=== PATIENT | male | born 1935 | race Caucasian/White ===

== ENCOUNTER 2018-08-31 09:18 | Inpatient (IN) ==
--- NOTE | 2018-08-31 09:47 | Emergency Department Note ---
Disposition Clinical Impression: Acute kidney injury superimposed on CKD, Hyperkalemia, Aspiration pneumonitis COPD (chronic obstructive pulmonary disease) Qualifiers: COPD type: chronic bronchitis Chronic bronchitis type: unspecified Qualified Code(s): J42 - Unspecified chronic bronchitis Dysphagia Qualifiers: Dysphagia type: unspecified Qualified Code(s): R13.10 - Dysphagia, unspecified UTI (urinary tract infection) Qualifiers: Urinary tract infection type: acute cystitis Hematuria presence: with hematuria Qualified Code(s): N30.01 - Acute cystitis with hematuria Disposition: Admitted As Inpatient Condition: Undetermined Referrals: NONE,PCP [Primary Care Provider] - Forms: ED Satisfaction Letter, Work/School Release Time of Disposition: 11:34 General Adult HPI - General Chief complaint: ED General Medical Stated complaint: aspiration/trouble swallowing Time Seen by Provider: 08/31/18 09:20 Source: patient, family Mode of arrival: wheelchair Limitations: altered mental status, physical limitation Nursing Notes Reviewed: Yes Vital Signs Reviewed: Yes - History of Present Illness HPI Narrative: 83-year-old male with history of hypertension, COPD, arrives to the emergency department concerned for increased weakness, difficulty swallowing to the point where he has not eaten in 3 days, concern for aspiration per family member. The patient was drinking some fluids Friday night/Friday morning and began coughing. She states that since then he has had a gurgling in his throat and his lungs. Patient is had numerous falls over the course of the past week as well. Daughter brought inpatient because he is so weak he cannot be taking care of at home. Patient is at his baseline mental status per the daughter and which she states that he has conversation with people but on evaluation in the room he is minimally conversive but he does understand the current situation based on his mental status evaluation. He is not in any respiratory distress but does have a large amount of coarse breath sounds on auscultation. She is covered in skin tears and abrasions on bilateral upper extremities from a recent fall. Is a large amount of ecchymosis on bilateral upper extremities. In addition his daughter notes the patient has a rash on bilateral lower extremities that she states was "an allergic reaction to something". Patient denies any complaints at this time but is a poor historian. The daughter thinks that he has a history of dementia but is unsure as he has never been "diagnosed". Pain Scale: 0 - Related Data Home Medications Medication Instructions Recorded Confirmed Budesonide/Formoterol 160/4.5 2 puff IH BIDR 08/17/17 08/05/18 [Symbicort 160/4.5] Ipratropium [ATROVENT Inhaler] 2 puff IH QID 08/17/17 08/05/18 Omeprazole [PriLOSEC] 20 mg PO BID 08/17/17 08/05/18 Simvastatin [Zocor] 40 mg PO QPM 08/17/17 08/05/18 Tamsulosin [Flomax] 0.4 mg PO DAILY 08/17/17 08/05/18 Acetylcysteine 600 mg PO BID 06/29/18 08/05/18 [L-Trylyf-c-Cysteine] Docusate Sodium [Dok] 100 mg PO BID PRN 06/29/18 08/05/18 Levothyroxine [Synthroid] 25 mcg PO DAILY 06/29/18 08/05/18 Metoprolol [Lopressor] 12.5 mg PO BID 06/29/18 08/05/18 Nitroglycerin [Nitrostat] 0.4 mg SL Q5M PRN 06/29/18 08/05/18 Theophylline Anhydrous [Jayjay-24] 100 mg PO DAILY 06/29/18 08/05/18 Previous Rx's Medication Instructions Recorded Ipratropium/Albuterol Neb [Duoneb] 3 ml IH Q6HR PRN #30 vial.neb 09/26/15 Ferrous Sulfate 325 mg PO DAILY 30 Days #30 tablet 08/08/18 Sodium Bicarbonate 325 mg PO TID 30 Days #90 tablet 08/08/18 Allergies Allergy/AdvReac Type Severity Reaction Status Date / Time latex Allergy Hives Verified 08/17/17 17:28 vancomycin Allergy See Verified 08/17/17 17:28 Comments lansoprazole AdvReac See Verified 08/17/17 17:28 Comments linezolid AdvReac See Verified 08/17/17 17:28 Comments All systems ED: reviewed and negative except as stated. Constitutional: Reports: chills, weakness. Denies: fever ENT ED: Reports: congestion, dysphagia Cardiovascular: Reports: dyspnea on exertion, edema. Denies: chest pain, orthopnea, syncope Respiratory: Reports: cough, dyspnea, sputum production. Denies: wheezes, hemoptysis, stridor Gastrointestinal: Denies: abdominal pain, nausea, vomiting, diarrhea, constipation, melena Genitourinary: Denies: urgency, dysuria Musculoskeletal: Reports: arthralgia, myalgia. Denies: back pain, neck pain Integumentary: Reports: rash, abrasion, lesions Neurological: Reports: weakness, confusion, abnormal gait. Denies: headache, numbness, paresthesias Past Medical History - Past Medical History Source: old records reviewed, obtained from family, nursing notes reviewed Medical history: Reports: COPD, coronary artery disease, hyperlipidemia, hypertension, myocardial infarction, peripheral artery disease, renal disease, thyroid disease, other Surgical history: Reports: non-contributory Psychiatric history: Reports: no psych history - Social History Smoking Status: Former smoker Smokeless Tobacco Status: No Alcohol use: Reports: none Drug use: Reports: none Physical Exam - General Limitations: altered mental status General appearance: alert, in no apparent distress - Head Head exam: other (Ecchymosis to for head as well as anterior scalp.) - Eye Eye exam: Present: normal appearance, PERRL, EOMI - ENT ENT exam: normal oropharynx, mucous membranes moist - Neck Neck exam: Present: normal inspection, full ROM, trachea midline - Chest Chest inspection: Present: normal inspection, symmetric chest wall rise. Abs ent: tenderness - Respiratory Respiratory exam: Present: other (Course breath sounds bilaterally). Absent: respiratory distress - Cardiovascular Cardiovascular exam: Present: regular rate, normal rhythm, normal heart sounds - Abdominal Exam Abdominal exam: Present: soft, Non-Tender, hernia (Midline), scar (Midline.). Absent: tenderness, distention, guarding, rebound, rigidity - Extremities Exam Extremities exam: Present: full ROM, tenderness (Bilateral upper extremities. Large amount of ecchymosis and bilateral abrasions and skin tears to bilateral upper extremities. Patient's left shoulder is a large amount of ecchymosis in the anterior aspect. The patient's bilateral lower extremities has a diffuse rash consistent with healing macular type rash with numerous excoriations. Right lower extremity has baseline edema compared to the left. Both feet have 1+ pitting edema. DP pulses and PT pulses 2+ bilaterally, radial pulses 2+ bilaterally. Full range of motion noted.) - Neurological Exam Neurological exam: Present: alert - Expanded Neurological Exam Patient oriented to: Present: person, place Cranial nerves: EOM function (II, III, IV, ): Normal Cerebellar function: wide-based gait Motor strength - LUE: 4/5 Motor strength - RUE: 4/5 Motor strength - LLE: 4/5 Motor strength - RLE: 4/5 Sensory exam upper extremity: light touch: Normal Sensory exam lower extremity: light touch: Normal Coma Scale Eye Opening: Spontaneous Coma Scale Motor Response: Obeys Commands Coma Scale Verbal Response: Confused Coma Scale Total: 14 - Skin Skin exam: Present: warm, dry, rash Course Vital Signs Temperature 97.5 F L 08/31/18 09:28 Pulse Rate 82 08/31/18 09:28 Respiratory Rate 22 08/31/18 09:28 Blood Pressure 130/68 08/31/18 09:28 O2 Sat by Pulse Oximetry 93 08/31/18 09:28 Temperature 97.5 F L 08/31/18 09:28 Pulse Rate 82 08/31/18 09:28 Respiratory Rate 22 08/31/18 09:28 Blood Pressure 130/68 08/31/18 09:28 O2 Sat by Pulse Oximetry 93 08/31/18 09:28 Oxygen Delivery Oxygen Delivery Room Air Medical Decision Making - MDM Narrative Medical decision making narrative: Patient's evaluation in the emergency department demonstrates findings con sistent with a aspiration pneumonitis given the patient's mild hypoxia and history of aspiration episode. In addition the patient was noted to have a urinary tract infection. We will go ahead and treat the patient's urinary tract infection with Rocephin. The patient will be admitted to the hospital for further workup and care. The patient does have an acute kidney injury on superimposed chronic kidney disease. His potassium is elevated at 5.3. Patient's no EKG changes. We will hold off treating his hyperkalemia given the patient's acute kidney injury. The patient will be admitted to the hospital at this time for further workup and care. animal care service worker was consulted. No further questions or concerns noted. Dr. Casas accepted to the hospitalist. - Lab Data Result diagrams: 08/31/18 09:49 08/31/18 09:49 Lab Results 08/31/18 08/31/18 08/31/18 Range/Units 09:49 09:49 09:49 WBC 8.6 (4.3-11.1) K/mcL RBC 3.26 L (4.19-5.50) M/mcL Hgb 9.5 L (12.9-16.9) g/dL Hct 30.3 L (37.5-50.1) % MCV 92.9 (83.0-100.0) fL MCH 29.1 (28.0-33.3) pg MCHC 31.4 L (31.6-35.5) g/dL RDW 15.1 H (11.5-14.5) % Plt Count 254 (140-400) K/mcL MPV 9.4 (9.4-12.4) fL Immature Gran % 0.3 (0-4) % Seg Neutrophils % 87.1 % Lymphocytes % 7.0 % Monocytes % 4.4 % Eosinophils % 0.9 % Basophils % 0.3 % Neutrophils # 7.5 (1.6-8.9) K/mcL Lymphocytes # 0.6 (0.6-4.6) K/mcL Monocytes # 0.4 (0.0-1.3) K/mcL Eosinophils # 0.1 (0.0-0.6) K/mcL Basophils # 0.0 (0.0-0.2) K/mcL PT 12.0 (9.4-12.1) Seconds INR 1.1 Sodium 142 (136-145) mEq/L Potassium 5.3 H (3.5-5.1) mEq/L Chloride 112 H (98-107) mEq/L Carbon Dioxide 22 L (23-29) mEq/L BUN 41 H (8-23) mg/dL Creatinine 2.08 H (0.70-1.30) mg/dL Est GFR ( Amer) 37 L (> 60) Est GFR (Non-Af Amer) 31 L (> 60) BUN/Creatinine Ratio 20 (6-26) Glucose 82 (70-105) mg/dL Calculated Osmolality 303 H (280-300) Lactic Acid (0.5-2.2) mmol/L Calcium 8.7 (8.6-10.3) mg/dL Total Bilirubin 0.3 (0.3-1.0) mg/dL AST 14 (13-39) Units/L ALT 11 (7-52) Units/L Alkaline Phosphatase 188 H (34-104) Units/L Troponin I < 0.03 (< 0.04) ng/mL Serum Total Protein 6.2 L (6.4-8.9) g/dL Albumin 2.8 L (3.5-5.7) g/dL Globulin 3.4 (2.4-3.5) g/dL Albumin/Globulin Ratio 0.8 L (1.1-2.2) Urine Color (Yellow) Urine Clarity (Clear) Urine pH (5.0-8.0) pH Units Ur Specific [place] (1.010-1.025) Urine Protein (Neg-Trace) mg/dL Urine Glucose (UA) (Normal) mg/dL Urine Ketones (Negative) mg/dL Urine Blood (Negative) Urine Nitrite (Negative) Urine Bilirubin (Negative) Urine Urobilinogen (Normal) mg/dL Ur Leukocyte Esterase (Negative) Urine Microscopic RBC (0-3) per hpf Urine Microscopic WBC (0-3) per hpf Ur Squamous Epith Cells (None-Few) per lpf Urine Bacteria (None-Few) per hpf Hyaline Casts (None-Few) per lpf Ur Culture Indicated? (NO) 08/31/18 08/31/18 Range/Units 09:53 10:50 WBC (4.3-11.1) K/mcL RBC (4.19-5.50) M/mcL Hgb (12.9-16.9) g/dL Hct (37.5-50.1) % MCV (83.0-100.0) fL MCH (28.0-33.3) pg MCHC (31.6-35.5) g/dL RDW (11.5-14.5) % Plt Count (140-400) K/mcL MPV (9.4-12.4) fL Immature Gran % (0-4) % Seg Neutrophils % % Lymphocytes % % Monocytes % % Eosinophils % % Basophils % % Neutrophils # (1.6-8.9) K/mcL Lymphocytes # (0.6-4.6) K/mcL Monocytes # (0.0-1.3) K/mcL Eosinophils # (0.0-0.6) K/mcL Basophils # (0.0-0.2) K/mcL PT (9.4-12.1) Seconds INR Sodium (136-145) mEq/L Potassium (3.5-5.1) mEq/L Chloride (98-107) mEq/L Carbon Dioxide (23-29) mEq/L BUN (8-23) mg/dL Creatinine (0.70-1.30) mg/dL Est GFR ( Amer) (> 60) Est GFR (Non-Af Amer) (> 60) BUN/Creatinine Ratio (6-26) Glucose (70-105) mg/dL Calculated Osmolality (280-300) Lactic Acid 0.7 (0.5-2.2) mmol/L Calcium (8.6-10.3) mg/dL Total Bilirubin (0.3-1.0) mg/dL AST (13-39) Units/L ALT (7-52) Units/L Alkaline Phosphatase (34-104) Units/L Troponin I (< 0.04) ng/mL Serum Total Protein (6.4-8.9) g/dL Albumin (3.5-5.7) g/dL Globulin (2.4-3.5) g/dL Albumin/Globulin Ratio (1.1-2.2) Urine Color Yellow (Yellow) Urine Clarity Cloudy A (Clear) Urine pH 6.5 (5.0-8.0) pH Units Ur Specific [place] 1.014 (1.010-1.025) Urine Protein >=1000 H (Neg-Trace) mg/dL Urine Glucose (UA) 250 H (Normal) mg/dL Urine Ketones Negative (Negative) mg/dL Urine Blood Small H (Negative) Urine Nitrite Negative (Negative) Urine Bilirubin Negative (Negative) Urine Urobilinogen Normal (Normal) mg/dL Ur Leukocyte Esterase Trace H (Negative) Urine Microscopic RBC 3-5 H (0-3) per hpf Urine Microscopic WBC TNTC H (0-3) per hpf Ur Squamous Epith Cells Few (None-Few) per lpf Urine Bacteria None Seen (None-Few) per hpf Hyaline Casts None Seen (None-Few) per lpf Ur Culture Indicated? YES A (NO) - EKG Data EKG #1 EKG attestation: Yes I reviewed and interpreted this EKG. EKG results narrative: Heart rate 85 beats for minute. Normal sinus rhythm. No ST elevation or ST depression noted but difficult to completely assess secondary to large amount of baseline artifact. No acute changes noted. EKG similar in appearance to EKG from 08/05/2018. Attestation Statement - Attestation Attestation: I, Ronan Okeefe, examined this patient and my medical decision-making was reviewed with the [facility]/PA/Advanced Practice Nurse/Resident Physician. I agree with the documented findings, disposition and treatment plan as described except to the extent set forth below. 83-year-old male presents emergency Department with concerns of increasing weakness, fatigue, multiple falls over the past couple days. She lives with daughter who states that he has had increased confusion over the past week, he does have a history of conversations with people that are not there past 3 months. Has not been formally diagnosed with dementia. Patient does not ambulate well on his own at baseline.. Daughter reports patient had multiple falls over the past few days while in shower, in bathroom and out of bed. CT did not show evidence of acute fracture or intracranial hemorrhage. Patient had possible urinary tract infection on urinalysis. He will be started on antibiotics in the emergency department. Patient be admitted to the hospital for further care and evaluation. animal care service worker was contacted regarding the patient's case and presentation.
[2018-08-31 10:11] LABS: Basophils % 0.3 %; Eosinophils # 0.1 K/mcL (0.0-0.6); Eosinophils % 0.9 %; Hematocrit 30.3 % (37.5-50.1); Hemoglobin 9.5 g/dL (12.9-16.9); Immature Granulocytes % 0.3 % (0-4); Lymphocytes # 0.6 K/mcL (0.6-4.6); Mean Corpuscular HGB Conc 31.4 g/dL (31.6-35.5); Mean Corpuscular Hemoglobin 29.1 pg (28.0-33.3); Mean Corpuscular Volume 92.9 fL (83.0-100.0); Mean Platelet Volume 9.4 fL (9.4-12.4); Monocytes # 0.4 K/mcL (0.0-1.3); Monocytes % 4.4 %; Neutrophils # 7.5 K/mcL (1.6-8.9); Platelet Count 254 K/mcL (140-400); Red Blood Count 3.26 M/mcL (4.19-5.50); Red Cell Distribution Width 15.1 % (11.5-14.5); Segmented Neutrophils % 87.1 %
[2018-08-31 10:16] LABS: INR 1.1
[2018-08-31 10:27] LABS: Troponin I < 0.03 ng/mL (< 0.04)
[2018-08-31 10:28] LABS: Alanine Aminotransferase 11 Units/L (7-52); Albumin 2.8 g/dL (3.5-5.7); Albumin/Globulin Ratio 0.8 (1.1-2.2); Alkaline Phosphatase 188 Units/L (34-104); Aspartate Amino Transferase 14 Units/L (13-39); BUN/Creatinine Ratio 20 (6-26); Bilirubin,Total 0.3 mg/dL (0.3-1.0); Blood Urea Nitrogen 41 mg/dL (8-23); Calcium 8.7 mg/dL (8.6-10.3); Carbon Dioxide 22 mEq/L (23-29); Chloride 112 mEq/L (98-107); Globulin 3.4 g/dL (2.4-3.5); Glucose 82 mg/dL (70-105); Osmolality,Calculated 303 (280-300); Potassium 5.3 mEq/L (3.5-5.1); Sodium 142 mEq/L (136-145); Total Protein 6.2 g/dL (6.4-8.9); eGFR For Non-African Americans 31 (> 60)
[2018-08-31 11:04] LABS: Bilirubin,Urine Negative (Negative); Blood,Urine Small (Negative); Clarity,Urine Cloudy (Clear); Color,Urine Yellow (Yellow); Glucose,Urine (UA) 250 mg/dL (Normal); Ketones,Urine Negative (Negative); Leukocyte Esterase,Urine Trace (Negative); Nitrite,Urine Negative (Negative); PH,Urine 6.5 pH Units (5.0-8.0); Protein,Urine >=1000 mg/dL (Neg-Trace); Specific Gravity,Urine 1.014 (1.010-1.025); Urobilinogen,Urine Normal (Normal)
[2018-08-31 11:08] LABS: Bacteria,Urine None Seen per hpf (None-Few); Hyaline Casts,Urine None Seen per lpf (None-Few); Squamous Epithelial Cell,Urine Few per lpf (None-Few); WBC,Urine TNTC per hpf (0-3)
[2018-08-31] MEDS ORDERED: cefTRIAXone 1,000 MG in Water for inj. (sterile) 20 ML 10 ML IVP ONE (11:28)
--- NOTE | 2018-08-31 11:59 | Internal Med History&Physical ---
Date of Encounter: 08/31/18 Time of Encounter: 11:59 Internal Medicine - H&P: HPI Chief complaint: falls, Not eating Admitted From: Home Plans for Post Hospital Care: Transfer Senior Care Facility History of present illness: Mr. Guzmán is a 83 year old male Past medical history of COPD, hypertension, CAD, HLD, CK 80, hypothyroidism was recently discharged after a anterolateral respiratory infection. Patient's family at that time decided to take him home even as PT recommended SNF placement. Over the weeks after discharge patient followed up with the nephrology recommended iron infusion and likely Aranesp treatment. Patient has been getting more altered as per daughter who takes care of him most of the time. She mentions he is not conversive 75% of the time. He does follow command on and off. He is able to walk on and off sometimes with a walker however has been falling a lot leading to a lot of injuries and bruises. Patient also has been not eating for past 2 days. Patient not able to offer any significant complaints. As per daughter he has not had any fevers or diarrhea or complaints of difficulty breathing or chest pain. Patient seen and examined at bedside in ER. Patient had workup for falls with x-ray of spine and wrist and shoulder which did not show any acute fractures. CT had was unremarkable. Lab data significant for possible UTI, potassium of 5.3, creatinine of 2.08, hemoglobin of 9.5. Patient not able to offer any complaints. He does follow commands but when asked to speak he is not able to articulate properly to understand. He is drowsy and goes back to sleep soon. Is not complaining any pain. Past Med Surg Social Fam HX - Past Medical History Medical history: COPD, coronary artery disease, hyperlipidemia, hypertension, myocardial infarction, peripheral artery disease, renal disease, thyroid di sease, other Additional medical history: Heart murmur. Two cardiac stents Psychiatric history: no psych history - Past Surgical History Additional surgical history: hernia repair, 3 hip replacements, heavy equipment accident and had surgery to repair internal damage to abdomen and bladder. - Social History Smoking Status: Former smoker Smokeless Tobacco Status: No Alcohol use: none Drug use: none - Family History Mother Living Status: Internal Medicine - H&P: Meds Ipratropium/Albuterol Neb [Duoneb] 3 ml IH Q6HR PRN #30 vial.neb 09/26/15 [Rx] Budesonide/Formoterol 160/4.5 [Symbicort 160/4.5] 2 puff IH BIDR 08/17/17 [History] Ipratropium [ATROVENT Inhaler] 2 puff IH QID 08/17/17 [History] Omeprazole [PriLOSEC] 20 mg PO BID 08/17/17 [History] Simvastatin [Zocor] 40 mg PO QPM 08/17/17 [History] Tamsulosin [Flomax] 0.4 mg PO DAILY 08/17/17 [History] Acetylcysteine [J-Ozokbh-v-Cysteine] 600 mg PO BID 06/29/18 [History] Docusate Sodium [Dok] 100 mg PO BID PRN 06/29/18 [History] Levothyroxine [Synthroid] 25 mcg PO DAILY 06/29/18 [History] Metoprolol [Lopressor] 12.5 mg PO BID 06/29/18 [History] Nitroglycerin [Nitrostat] 0.4 mg SL Q5M PRN 06/29/18 [History] Theophylline Anhydrous [Jayjay-24] 100 mg PO DAILY 06/29/18 [History] Ferrous Sulfate 325 mg PO DAILY 30 Days #30 tablet 08/08/18 [Rx] Sodium Bicarbonate 325 mg PO TID 30 Days #90 tablet 08/08/18 [Rx] Allergy/AdvReac Type Severity Reaction Status Date / Time latex Allergy Hives Verified 08/17/17 17:28 vancomycin Allergy See Verified 08/17/17 17:28 Comments lansoprazole AdvReac See Verified 08/17/17 17:28 Comments linezolid AdvReac See Verified 08/17/17 17:28 Comments All Systems PM: A 10-system review of systems was performed and is negative for pertinent findings except as documented above in the HPI. - Constitutional Vitals: Temp Pulse Resp BP Pulse Ox 97.5 F L 82 22 130/68 93 08/31/18 09:28 08/31/18 09:28 08/31/18 09:28 08/31/18 09:28 08/31/18 09:28 Exam: Constitutional: Vitals as noted. Conversant. No Apparent Distress. Eyes : Sclera white, conjunctiva clear, no lid lag, PEARLA. ENT : Grossly normal hearing. Tongue protruding. No JVD, no cervical lymphadenopathy. no thyromegaly or mass. Respiratory : Coarse transmitted upper respiratory secretory sounds diffusely. No accessory muscle use, rales, rhonchi or wheezes Cardiovascular : RRR, +S1, +S2. ejection murmur, gallop, rubs. No chest wall tenderness GI/Abdominal : Soft, Non-tender, Non-distended, normal bowel sounds, soft, no peritoneal signs. no orgenomegaly or mass appreciated. no hernia. Musculoskeletal: 2+ pedal edema Neurological: Alert, not able to converse. following command. Moving all extremities on command Skin: multiple skin tears on both arms Pych: apathic, not talking Internal Med - H&P Results - Labs CBC & Chem 7: 08/31/18 09:49 08/31/18 09:49 Labs: Short CBC 08/31/18 Range/Units 09:49 WBC 8.6 (4.3-11.1) K/mcL Hgb 9.5 L (12.9-16.9) g/dL Hct 30.3 L (37.5-50.1) % Plt Count 254 (140-400) K/mcL Neutrophils # 7.5 (1.6-8.9) K/mcL BMP 08/31/18 09:49 Sodium 142 Potassium 5.3 H Chloride 112 H Carbon Dioxide 22 L BUN 41 H Creatinine 2.08 H Glucose 82 Calcium 8.7 Cardiac Enzymes 08/31/18 Range/Units 09:49 Troponin I < 0.03 (< 0.04) ng/mL Liver Function 08/31/18 Range/Units 09:49 Total Bilirubin 0.3 (0.3-1.0) mg/dL AST 14 (13-39) Units/L ALT 11 (7-52) Units/L Alkaline Phosphatase 188 H (34-104) Units/L Albumin 2.8 L (3.5-5.7) g/dL Urine 08/31/18 Range/Units 10:50 Urine Color Yellow (Yellow) Urine Clarity Cloudy A (Clear) Urine pH 6.5 (5.0-8.0) pH Units Ur Specific [place] 1.014 (1.010-1.025) Urine Protein >=1000 H (Neg-Trace) mg/dL Urine Glucose (UA) 250 H (Normal) mg/dL - EKG Data -: EKG Interpreted by Myself - Impressions ITS Impressions Chest X-Ray 08/31/18 09:42 IMPRESSION: No acute process. D/ / Malik Bonds MD / Malik Bonds MD Interpreting Provider: Malik Bonds MD Head CT 08/31/18 09:42 IMPRESSION: No acute intracranial abnormality. Cerebral atrophy. Atherosclerotic calcification of the cavernous carotid arteries. Chronic small vessel ischemic changes. D/ / 08/31/2018 11:03:28 Dulce Posey MD / malena Interpreting Provider: Dulce Posey MD Cervical Spine CT 08/31/18 09:43 IMPRESSION: No acute abnormality of the cervical spine. Mild anterolisthesis at C5-C6 likely degenerative. Stable old fracture of T5 and T6. D/ / 08/31/2018 10:58:24 [facility] Bonds MD [email or web address] Inter[facility] Provider: Malik Bonds MD Shoulder X-Ray 08/31/18 09:43 IMPRESSION: No acute abnormality involving the left shoulder. 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 No evidence of acute fracture involving the right or left wrist. D/ / 08/31/2018 10:38:05 Malik Bonds MD / primitivo Interpreting Provider: Malik Bonds MD Wrist X-Ray 08/31/18 09:43 IMPRESSION: No acute abnormality involving the left shoulder. 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 No evidence of acute fracture involving the right or left wrist. D/ / 08/31/2018 10:38:05 Malik Bonds MD / primitivo Interpreting Provider: Malik Bonds MD Wrist X-Ray 08/31/18 09:43 IMPRESSION: No acute abnormality involving the left shoulder. 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 No evidence of acute fracture involving the right or left wrist. D/ / 08/31/2018 10:38:05 Malik Bonds MD / lgray Interpreting Provider: Malik Bonds MD - Assessment and plan (1) Falls Current Visit: Yes Status: Acute Assessment and plan: - Patient having multiple falls. Likely from declining strength - Patient will need PT OT evaluation and likely care home placement. - Discussed with family who initially had wished to go to care home. But after discussing with possible need for feeding tube if patient not able to eat safely do wonder discuss goals of care. We will call palliative consult. Qualifiers: Encounter type: initial encounter Qualified Code(s): W19.XXXA - Unspecified fall, initial encounter (2) Protein-calorie malnutrition, moderate Current Visit: Yes Status: Acute Assessment and plan: - Likely from decreased intake - We will get swallowing evaluation - We will have goals of care discussion for nutrition. (3) UTI (urinary tract infection) Current Visit: Yes Status: Acute Assessment and plan: - Started on ceftriaxone. We will continue - Follow urine cultures. Qualifiers: Urinary tract infection type: acute cystitis Hematuria presence: with hematuria Qualified Code(s): N30.01 - Acute cystitis with hematuria (4) COPD (chronic obstructive pulmonary disease) Current Visit: Yes Status: Chronic Assessment and plan: - Not in exacerbation - Continue home inhalers Qualifiers: COPD type: chronic bronchitis Chronic bronchitis type: unspecified Qualified Code(s): J42 - Unspecified chronic bronchitis (5) Coronary artery disease Current Visit: No Status: Acute Assessment and plan: We will continue home medication and take by mouth. Qualifiers: Associated angina: angina presence unspecified Qualified Code(s): I25.10 - Atherosclerotic heart disease of [place] coronary artery without angina pectoris (6) DVT prophylaxis Current Visit: No Status: Acute Assessment and plan: - EPCD (7) Chronic kidney disease Current Visit: No Status: Chronic Assessment and plan: - Appears to be stable at this time. - May have some dehydration. We will keep minimal maintenance fluid d5-1/2 NS at 50/hr for now. Qualifiers: Chronic kidney disease stage: stage 3 (moderate) Qualified Code(s): N18.3 - Chronic kidney disease, stage 3 (moderate) (8) Hypothyroidism Current Visit: No Status: Chronic Assessment and plan: We will resume home medication if able to take by mouth Qualifiers: Qualified Code(s): E03.9 - Hypothyroidism, unspecified (9) Altered mental state Current Visit: Yes Status: Acute Assessment and plan: - Possibly related to UTI on baseline dementia and CKD - May have aspiration pneumonitis. Chest x-ray without any infiltrate. We will monitor respiratory status - Swallow evaluation as above - High risk of delirium given his comorbidities. Qualifiers: Altered mental status type: disorientation Qualified Code(s): R41.0 - Disorientation, unspecified - Time Spent With Patient Total time spent is greater than 50% in coordination of care (as documented) at patient's floor/unit and/or counseling patient:
[2018-08-31] MEDS ORDERED: Ipratropium/Albuterol Neb 3 ML IH PRN (12:32)
[2018-08-31] MEDS ORDERED: D5% in 0.45% NACL 1,000 ML IVC SCH (12:45)
[2018-08-31] MEDS ORDERED: Ipratropium 1 PUFF INHALER IH SCH (13:00)
--- NOTE | 2018-08-31 14:37 | Palliative - Consult Note ---
Date of Encounter: 08/31/18 Time of Encounter: 14:00 - Assessment and Plan (1) Goals of care, counseling/discussion Current Visit: Yes Status: Acute Assessment and plan: Met with patient's daughter Leslie Tijerina reports she has been told by several people that patient is in end stages of illnesses and could pass soon. Acknowledges what others have said in that she knows he is sicker than he has been, but also is not willing to accept as imminent. Leslie reports patient's secondary MPOA Rachel wants to bring patient home and keep him comfortable. Inquired senior care tentative plan with Leslie, whom reports to bring patient home with hospice care, but was unable to identify what "hospice care" meant. Explained role of hospice care is to alleviate symptoms and provide care for patients and their families either at home or in a facility; however, Leslie only reports that Rachel understands everything more and wants Rachel to explain it to her. Patient's daughter Leslie remains very focused on aggressive treatment, including all medication regimens at home and follow up with nephrology for Iron and Aranesp. Clarified CODE STATUS. Changed CODE STATUS to DNRCC. Met with Leslie and Rachel together. Rachel reports patient has [facility] at home with PT/OT/Aides and nurses. Rachel reports patient has went through enough and is ready to focus on comfort. Leslie Reports she is not ready to give up and would like to wait the next 24-48 hours with treatment and decide further decisions at that time. Educated Leslie and Rachel that even though they are both decision makers, that they will need to agree prior to further decision making. Requests to re- meet with Palliative care team tomorrow. (2) COPD (chronic obstructive pulmonary disease) Current Visit: Yes Status: Chronic Assessment and plan: Patient appears to be having increased dyspnea. Oxygen saturation 84-88% in ER during assessment. Oxygen therapy during this time. Qualifiers: COPD type: chronic bronchitis Chronic bronchitis type: unspecified Qualified Code(s): J42 - Unspecified chronic bronchitis (3) Dehydration Current Visit: No Status: Acute Assessment and plan: Patient has only had minimal drinks for several days. Showing signs of dehydration in labwork. IVF ordered. (4) Acute kidney injury superimposed on CKD Current Visit: Yes Status: Acute Assessment and plan: Patient sees Nephrology outpatient. Daughter Leslie reports patient is supposed to start Iron and Aranesp this coming week (friday). IVF ordered by Primary team for management of electrolyte abnormalities. (5) Altered mental state Current Visit: Yes Status: Acute Qualifiers: Altered mental status type: disorientation Qualified Code(s): R41.0 - Disorientation, unspecified (6) Falls Current Visit: Yes Status: Acute Assessment and plan: Patient has been having frequent recent falls per family reports. X-rays and CT negative for acute cause. Fall precautions. PT/OT consult appreciated. Qualifiers: Encounter type: initial encounter Qualified Code(s): W19.XXXA - Unspecified fall, initial encounter (7) Excessive oral secretions Current Visit: Yes Status: Acute Assessment and plan: Patient noted to have increased oral secretions during assessment. Add Robinul IV BID PRN for comfort. Palliative-CN HPI - Data of Consult Patient: new to practice Consult date: 08/31/18 Requesting Physician: Kiya Casas MD Primary Care Provider: PCP NONE - Consult Narrative Palliative Care/Comfort Measures: Palliative care Reason for consult: Discuss goals of care History of present illness: Mr. Guzmán is a 83 year old male Arrived to [facility] ER on 08/31/18 with frequent falls and not eating since Friday. Patient found to have UTI and FREDDIE on Chronic kidney disease. PMH: COPD, coronary artery disease, hyperlipidemia, hypertension, myocardial infarction, peripheral artery disease, renal disease, thyroid disease, heart murmur, and CKD stage 3. Patient had radiologic work up of wrist, shoulder, spine, head, and chest performed with only chronic changes noted. Lab analysis proved electrolyte abnormalities. Patient admitted with co nsults placed for PT/OT/speech and social work faculty member pending. History obtained from patients daughter (JONA) Leslie Tijerina present at bedside. Leslie reports patient had previously been admitted to [facility] for lung infection and brought home with family care. Leslie reports she is the primary patient care secretary. Reports that had been fine up until a few days ago. Baseline reported as walking with walker independently to the bathroom. Speaks, but can be talking to anything. Had a coughing episode a few days ago and had not eaten since. Family disagreements in goals of care apparent from meeting with Leslie. Leslie is upset with [facility] Fernandez (3A RN), reporting she is always late and only wants to take my dad home to . Rachel arrived at end of initial meet and greet in ER, agreed to meet upstairs. Patient looks to a speaker when spoke to; however, does not make attempt at verbalization. Patient unable to verbalize symptoms at this time. No nonverbal signs of pain present. Patient noted to utilizing accessory muscles with breathing. Increased audible airway secretions noted. Lungs clear to auscultation. CC: Kiya Casas MD - Time Spent with Patient Time: Total time spent is greater than 50% in coordination of care (as documented) at patient's floor/unit and/or counseling patient: Past Med Surg Social Fam HX - Past Medical History Medical history: COPD, coronary artery disease, hyperlipidemia, hypertension, myocardial infarction, peripheral artery disease, renal disease, thyroid disease, other Additional medical history: Heart murmur. Two cardiac stents Psychiatric history: no psych history - Past Surgical History Surgical History: non-contributory Additional surgical history: hernia repair, 3 hip replacements, heavy equipment accident and had surgery to repair internal damage to abdomen and bladder. - Social History Smoking Status: Former smoker Smokeless Tobacco Status: No Alcohol use: none Drug use: none - Family History Mother Living Status: Medications and Allergies Ipratropium/Albuterol Neb [Duoneb] 3 ml IH Q6HR PRN #30 vial.neb 09/26/15 [Rx] Budesonide/Formoterol 160/4.5 [Symbicort 160/4.5] 2 puff IH BIDR 08/17/17 [History] Ipratropium [ATROVENT Inhaler] 2 puff IH QID 08/17/17 [History] Omeprazole [PriLOSEC] 20 mg PO BID 08/17/17 [History] Simvastatin [Zocor] 40 mg PO QPM 08/17/17 [History] Tamsulosin [Flomax] 0.4 mg PO DAILY 08/17/17 [History] Acetylcysteine [H-Owxqmp-z-Cysteine] 600 mg PO BID 06/29/18 [History] Docusate Sodium [Dok] 100 mg PO BID PRN 06/29/18 [History] Levothyroxine [Synthroid] 25 mcg PO DAILY 06/29/18 [History] Metoprolol [Lopressor] 12.5 mg PO BID 06/29/18 [History] Nitroglycerin [Nitrostat] 0.4 mg SL Q5M PRN 06/29/18 [History] Theophylline Anhydrous [Jayjay-24] 100 mg PO DAILY 06/29/18 [History] Ferrous Sulfate 325 mg PO DAILY 30 Days #30 tablet 08/08/18 [Rx] Sodium Bicarbonate 325 mg PO TID 30 Days #90 tablet 08/08/18 [Rx] Allergy/AdvReac Type Severity Reaction Status Date / Time latex Allergy Hives Verified 08/17/17 17:28 vancomycin Allergy See Verified 08/17/17 17:28 Comments lansoprazole AdvReac See Verified 08/17/17 17:28 Comments linezolid AdvReac See Verified 08/17/17 17:28 Comments ROS unobtainable: due to mental status (obtained from Daughter) - Constitutional Constitutional ROS PAL: decreased appetite, anorexia, lethargy - Respiratory Respiratory: cough, dyspnea - Gastrointestinal Gastrointestinal: no diarrhea, no vomiting - Integumentary ROS Integumentary: lesions, wounds - Neurological Neurological ROS: behavioral changes, frequent falls, weakness - Psychiatric Psychiatric general PM: memory loss Palliative Care-Exam - Constitutional Vitals: Temp Pulse Resp BP Pulse Ox 97.5 F L 88 19 152/93 100 08/31/18 09:28 08/31/18 12:41 08/31/18 12:41 08/31/18 12:41 08/31/18 12:41 General appearance: Present: mild distress, thin - Head Head Exam: Present: normal inspection - Eye Eye exam: Present: normal appearance. Absent: periorbital swelling, periorbital tenderness Pupils: Present: normal accommodation - ENT ENT exam: Present: mucous membranes dry, normal external ear exam - Expanded ENT Exam Mouth Exam: Present: tongue elevation. Absent: drooling - Neck Neck exam: Present: full ROM, normal inspection. Absent: tenderness - Respiratory Respiratory exam: Present: accessory muscle use, CTAB. Absent: wheezes - Cardiovascular Cardiovascular exam: Present: systolic murmur - Expanded Cardiovascular Exam Peripheral pulses: 1+: Posterior Tibialis (L), Posterior Tibialis (R), Dorsalis Pedis (L) PM, Dorsalis Pedis (R) PM, 2+: Radial (L), Radial (R) - GI/Abdominal Exam GI/Abdominal exam: Present: normal bowel sounds, soft. Absent: tenderness - Rectal Rectal Exam: Present: deferred - Extremities Exam Extremities exam: Present: pedal edema (Non-pitting; right larger than left. Patient's daughter reports this is patient's baseline.). Absent: calf tenderness - Expanded Upper Extremities Exam General: Present: abrasion Forearm wrist exam: Present: abrasion Hand wrist exam: Present: abrasion - Expanded Lower Extremities Exam Lower Leg exam: Present: abrasion - Neurological Exam Neurological exam: Present: alert, altered, strengths equal and symetr throughout. Absent: oriented X3 - Expanded Neurological Exam Neurological exam expanded: Present: tremor Patient oriented to: Absent: person, place, time Coma Scale Eye Opening: To Voice Coma Scale Motor Response: Withdraws to Pain Coma Scale Verbal Response: None Coma Scale Total: 8 - Psychiatric Psychiatric exam: Present: anxious - Skin Skin exam: Present: pallor, warm. Absent: intact Internal Medicine - CN: Reslt - Labs CBC & Chem 7: 08/31/18 09:49 08/31/18 09:49 Labs: Short CBC 08/31/18 Range/Units 09:49 WBC 8.6 (4.3-11.1) K/mcL Hgb 9.5 L (12.9-16.9) g/dL Hct 30.3 L (37.5-50.1) % Plt Count 254 (140-400) K/mcL Neutrophils # 7.5 (1.6-8.9) K/mcL BMP 08/31/18 09:49 Sodium 142 Potassium 5.3 H Chloride 112 H Carbon Dioxide 22 L BUN 41 H Creatinine 2.08 H Glucose 82 Calcium 8.7 Cardiac Enzymes 08/31/18 Range/Units 09:49 Troponin I < 0.03 (< 0.04) ng/mL Liver Function 08/31/18 Range/Units 09:49 Total Bilirubin 0.3 (0.3-1.0) mg/dL AST 14 (13-39) Units/L ALT 11 (7-52) Units/L Alkaline Phosphatase 188 H (34-104) Units/L Albumin 2.8 L (3.5-5.7) g/dL Urine 08/31/18 Range/Units 10:50 Urine Color Yellow (Yellow) Urine Clarity Cloudy A (Clear) Urine pH 6.5 (5.0-8.0) pH Units Ur Specific [place] 1.014 (1.010-1.025) Urine Protein >=1000 H (Neg-Trace) mg/dL Urine Glucose (UA) 250 H (Normal) mg/dL - ABG Interpretation ABG results: PT/INR, D-dimer PT 12.0 Seconds (9.4-12.1) 08/31/18 09:49 - Impressions Impressions Chest X-Ray 08/31/18 09:42 IMPRESSION: No acute process. D/ / Malik Bonds MD / Malik Bonds MD Interpreting Provider: Malik Bonds MD Head CT 08/31/18 09:42 IMPRESSION: No acute intracranial abnormality. Cerebral atrophy. Atherosclerotic calcification of the cavernous carotid arteries. Chronic small vessel ischemic changes. D/ / 08/31/2018 11:03:28 Dulce Posey MD / malena Interpreting Provider: Dulce Posey MD Cervical Spine CT 08/31/18 09:43 IMPRESSION: No acute abnormality of the cervical spine. Mild anterolisthesis at C5-C6 likely degenerative. Stable old fracture of T5 and T6. D/ / 08/31/2018 10:58:24 Malik Bonds MD / [email or web address] Interpreting Provider: Malik Bonds MD Shoulder X-Ray 08/31/18 09:43 IMPRESSION: No acute abnormality involving the left shoulder. 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 No evidence of acute fracture involving the right or left wrist. D/ / 08/31/2018 10:38:05 [facility] Provider: Malik Bonds MD Wrist X-Ray 08/31/18 09:43 IMPRESSION: No acute abnormality involving the left shoulder. 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 No evidence of acute fracture involving the right or left wrist. D/ / 08/31/2018 10:38:05 Malik Bonds MD / [facility] Interpreting Provider: Malik Bonds MD Wrist X-Ray 08/31/18 09:43 IMPRESSION: No acute abnormality involving the left shoulder. 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 No evidence of acute fracture involving the right or left wrist. D/ / 08/31/2018 10:38:05 Malik Bonds MD / [facility] Interpreting Provider: Malik Bonds MD Consult Discharge Plan - Plan Referrals: NONE,PCP [Primary Care Provider] - Palliative Quality Palliative Quality: Screen for Code Status: Yes, Screen for Goals of Care: Yes, Screen for Pain: Yes, If Pain Regimen Started, Initiate Bowel Regimen: NA, Screen for Nausea/Vomitting: NA (patient unable to verbalize) Code Status: 08/31/18 11:55 Resuscitation Status: Active [RES] Routine Comment: Resuscitation Status: [id number] Palliative Scale - Palliative Performance Scale How ambulatory is this patient?: Mainly sit / lie What is patient's level of activity and evidence of disease?: Unable to do any work, Extensive disease How much self-care assistance does patient require?: Considerable assistance required How much oral intake does the patient have?: Minimal to sips What is this patient's level of consciousness?: Full or drowsy with or without confusion Palliative Performance Score: 30 %
[2018-08-31] MEDS ORDERED: Glycopyrrolate 0.2 MG/ML VIAL IVP PRN (14:51)
[2018-08-31] MEDS: Ipratropium 1 PUFF INHALER IH SCH ×2 (15:41→22:02)
[2018-08-31] MEDS: Budesonide/Formoterol 160/4.5 1 PUFF INH IH SCH (22:02)
[2018-09-01] MEDS: Ipratropium 1 PUFF INHALER IH SCH ×4 (04:16→22:25)
[2018-09-01 05:42] LABS: Basophils % 0.7 %; Eosinophils # 0.3 K/mcL (0.0-0.6); Eosinophils % 4.7 %; Hematocrit 25.9 % (37.5-50.1); Immature Granulocytes % 0.4 % (0-4); Lymphocytes # 0.5 K/mcL (0.6-4.6); Lymphocytes % 9.3 %; Mean Corpuscular HGB Conc 30.9 g/dL (31.6-35.5); Mean Corpuscular Hemoglobin 28.7 pg (28.0-33.3); Mean Corpuscular Volume 92.8 fL (83.0-100.0); Mean Platelet Volume 9.6 fL (9.4-12.4); Monocytes # 0.4 K/mcL (0.0-1.3); Monocytes % 6.7 %; Neutrophils # 4.2 K/mcL (1.6-8.9); Platelet Count 219 K/mcL (140-400); Red Blood Count 2.79 M/mcL (4.19-5.50); Red Cell Distribution Width 15.2 % (11.5-14.5); Segmented Neutrophils % 78.2 %
[2018-09-01 06:02] LABS: Calcium 8.4 mg/dL (8.6-10.3); Potassium 4.8 mEq/L (3.5-5.1)
[2018-09-01] MEDS ORDERED: Dextrose Gel 15 GM/37.5 ML TUBE PO PRN ×2 (08:13)
[2018-09-01] MEDS ORDERED: *HR* Dextrose 50 % in Water (Syg) 50 ML SYRINGE IVP PRN (08:13)
[2018-09-01] MEDS ORDERED: D5% in Water 1,000 ML IVC PRN (08:13)
[2018-09-01] MEDS ORDERED: D5% in 0.9% NACL 1,000 ML IVC SCH (08:15)
[2018-09-01] MEDS: cefTRIAXone 1,000 MG in Water for inj. (sterile) 20 ML 10 ML IVP SCH (08:44)
[2018-09-01] MEDS: Budesonide/Formoterol 160/4.5 1 PUFF INH IH SCH ×2 (10:36→22:25)
[2018-09-01] MEDS ORDERED: Insulin LISPRO 300 UNITS/3 ML VIAL SQ SCH (12:00)
--- NOTE | 2018-09-01 12:23 | Internal Med Progress Note ---
Hospitalist Progress Note - Encounter Date of Encounter: 09/01/18 Time of Encounter: 12:21 - Subjective Interval History: I have seen and evaluated the patient at bedside. patient is aox2 as per daughter at bedside the patient is back to his baseline. he denies nausea, vomiting - Exam Vitals: Temp Pulse Resp BP Pulse Ox 98.3 F 81 18 147/75 95 09/01/18 11:30 09/01/18 11:30 09/01/18 11:30 09/01/18 11:30 09/01/18 11:30 Exam: Vitals: required General: Alert and oriented x2. In no distress Cardiovascular: RRR, normal S1 & S2, no rubs, murmurs or gallops. Lungs: CTA b/l, no wheezes or crackles. Abdomen: Soft, non-tender, no rigidity. Extremities: No deformity, no edema or tenderness, no joint swelling or clubbing. Neurological: CN II-XII intact Rest of the physical exam is non contributory - Assessment and Plan (1) UTI (urinary tract infection) Current Visit: Yes Status: Acute Assessment and Plan: Continue ceftriaxone empirically. Pending urine cultures result. (2) COPD (chronic obstructive pulmonary disease) Current Visit: Yes Status: Chronic Assessment and Plan: Not on acute exacerbation. Continue bronchodilators when necessary. On Sym bicort. (3) Coronary artery disease Current Visit: No Status: Chronic Assessment and Plan: We will resume simvastatin 40 mg daily at bedtime. (4) Chronic kidney disease Current Visit: No Status: Chronic Assessment and Plan: Kidney function at baseline. Avoid nephrotoxic medication. (5) Hypothyroidism Current Visit: No Status: Chronic Assessment and Plan: Levothyroxine 25 mcg/pO daily (6) Protein-calorie malnutrition, moderate Current Visit: Yes Status: Chronic (7) Altered mental state Current Visit: Yes Status: Resolved Assessment and Plan: Most likely metabolic in the setting of UTI. (8) Falls Current Visit: Yes Status: Chronic Assessment and Plan: PT/OT has been consulted. (9) Anemia Current Visit: Yes Status: Chronic Assessment and Plan: Respiratory history of chronic anemia. With a slightly drop on H&H. Fecal occult blood tests ordered. will resume ferrous sulfate 325mg/PO daily DVT Prophylaxis: Started on heparin 5000 units subcutaneous twice a day. - Summary of Assessment and Plan Summary of Assessment and Plan: Patient to remain in the hospital pending urine culture results. After urine cultures resulted patient will be discharged home with home hospice. Family wants to treat the UTI before the patient is DC. - Time Spent with Patient Total time spent is greater than 50% in coordination of care (as documented) at patient's floor/unit and/or counseling patient: Greater than 35 minutes (40) Plan of Care Discussed with: family (and the nurse) Internal Medicine: Result - Labs CBC & Chem 7: 09/01/18 04:59 09/01/18 04:59 Labs: Short CBC 09/01/18 Range/Units 04:59 WBC 5.4 (4.3-11.1) K/mcL Hgb 8.0 L D (12.9-16.9) g/dL Hct 25.9 L (37.5-50.1) % Plt Count 219 (140-400) K/mcL Neutrophils # 4.2 (1.6-8.9) K/mcL BMP 09/01/18 04:59 Sodium 142 Potassium 4.8 Chloride 117 H Carbon Dioxide 20 L BUN 40 H Creatinine 1.99 H Glucose 83 Calcium 8.4 L - ABG Interpretation ABG results: PT/INR, D-dimer PT 12.0 Seconds (9.4-12.1) 08/31/18 09:49 - Impressions Impressions Cervical Spine CT 08/31/18 09:43 IMPRESSION: No acute abnormality of the cervical spine. Mild anterolisthesis at C5-C6 likely degenerative. Stable old fracture of T5 and T6. D/ / 08/31/2018 10:58:24 Malik Bonds MD / [facility] Interpreting Provider: Malik Bonds MD Shoulder X-Ray 08/31/18 09:43 IMPRESSION: No acute abnormality involving the left shoulder. 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 No evidence of acute fracture involving the right or left wrist. D/ / 08/31/2018 10:38:05 Malik Bonds MD / [facility] Interpreting Provider: Malik Bonds MD Wrist X-Ray 08/31/18 09:43 IMPRESSION: No acute abnormality involving the left shoulder. 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 No evidence of acute fracture involving the right or left wrist. D/ / 08/31/2018 10:38:05 Malik Bonds MD / [facility] Interpreting Provider: Malik Bonds MD Wrist X-Ray 08/31/18 09:43 IMPRESSION: No acute abnormality involving the left shoulder. 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 No evidence of acute fracture involving the right or left wrist. D/ / 08/31/2018 10:38:05 Malik Bonds MD / [facility] Interpreting Provider: Malik Bonds MD - [facility] Documentation of Mechanical Device: Intermittent pneumatic compression device Consult Discharge Plan - Plan Referrals: NONE,PCP [Primary Care Provider] - (1) UTI (urinary tract infection) Qualifiers: Urinary tract infection type: acute cystitis Hematuria presence: with hematuria Qualified Code(s): N30.01 - Acute cystitis with hematuria (2) COPD (chronic obstructive pulmonary disease) Qualifiers: COPD type: chronic bronchitis Chronic bronchitis type: unspecified Qualified Code(s): J42 - Unspecified chronic bronchitis (3) Coronary artery disease Qualifiers: Coronary Disease-Associated Artery/Lesion type: unspecified vessel or lesion type [place] vs. transplanted heart: unspecified whether [place] or transplanted heart Associated angina: angina presence unspecified Qualified Code(s): I25.10 - Atherosclerotic heart disease of [place] coronary artery without angina pectoris (4) Chronic kidney disease Qualifiers: Chronic kidney disease stage: stage 3 (moderate) Qualified Code(s): N18.3 - Chronic kidney disease, stage 3 (moderate) (5) Hypothyroidism Qualifiers: Qualified Code(s): E03.9 - Hypothyroidism, unspecified (7) Altered mental state Qualifiers: Altered mental status type: disorientation Qualified Code(s): R41.0 - Disorientation, unspecified (8) Falls Qualifiers: Encounter type: initial encounter Qualified Code(s): W19.XXXA - Unspecified fall, initial encounter (9) Anemia Qualifiers: Anemia type: unspecified type Qualified Code(s): D64.9 - Anemia, unspecified
--- NOTE | 2018-09-01 13:11 | Palliative Progress Note ---
Date of Encounter: 09/01/18 Time of Encounter: 10:30 - Assessment and plan (1) Goals of care, counseling/discussion Current Visit: Yes Status: Acute Assessment and plan: Follow up meeting today with pt's daughter and JONA Nelson. Reviewed current medical condition. Leslie acknowledged that pt is better today, he is alert and hungry. She believes that she should continue to treat all infections aggressively since he seams to improve every time. However, she noted that he does not quite return to his baseline, he is continuing to fall often at home and she does not feel safe to care for him alone anymore. She is aware that pt does not want to go to a [facility], and that he would rather return home on hospice and be kept comfortable. Leslie has 9 siblings, and all agree that pt should be home on hospice. I explained that pt is now at end-of-life, as shown by the recurrent infections and functional decline. Reviewed the philosophy of hospice, the plan of care and support. I also explained that hospice will mean focus on comfort and avoiding further hospitalizations. Leslie came to term that this was in line with pt's known wishes and is now agreeable to returning home with hospice care once pt stable. Goals of care: continue current level of care until pt is stable, then discharge home for home hospice enrolment. [place] [facility] to be notified once pt stable for discharge. Primary hospitalist aware. Palliative care will continue to follow. (2) Falls Current Visit: Yes Status: Chronic Assessment and plan: Pt has been having frequent falls at home, likely due to functional decline. Qualifiers: Encounter type: initial encounter Qualified Code(s): W19.XXXA - Unspecified fall, initial encounter (3) Excessive oral secretions Current Visit: Yes Status: Acute Assessment and plan: Pt continues to have increased secretions, but he is able to clear with cough. Glycopyrrolate ordered prn, no doses received. (4) UTI (urinary tract infection) Current Visit: Yes Status: Acute Assessment and plan: on Ceftriaxone IVP. Cultures preliminary gram positive cocci. Qualifiers: Urinary tract infection type: acute cystitis Hematuria presence: with hematuria Qualified Code(s): N30.01 - Acute cystitis with hematuria (5) Altered mental state Current Visit: Yes Status: Resolved Assessment and plan: Pt's mental status improving with treatment. Qualifiers: Altered mental status type: disorientation Qualified Code(s): R41.0 - Disorientation, unspecified (6) Protein-calorie malnutrition, moderate Current Visit: Yes Status: Chronic - Time Spent With Patient Total time spent is greater than 50% in coordination of care (as documented) at patient's floor/unit and/or counseling patient: Greater than 35 minutes - Subjective Interval history: pt was awake, oriented to person, abl to make needs known. He denied any pain or discomfort, complaining of feeling hungry. Daughter Leslie was present at the bedside, stated he looks better today and this is the first time in 3 days that he wants some food. - Constitutional Vitals: Abnormal lab results RBC 2.79 M/mcL (4.19-5.50) L 09/01/18 04:59 Hgb 8.0 g/dL (12.9-16.9) L D 09/01/18 04:59 Hct 25.9 % (37.5-50.1) L 09/01/18 04:59 MCHC 30.9 g/dL (31.6-35.5) L 09/01/18 04:59 RDW 15.2 % (11.5-14.5) H 09/01/18 04:59 Lymphocytes # 0.5 K/mcL (0.6-4.6) L 09/01/18 04:59 Chloride 117 mEq/L (98-107) H 09/01/18 04:59 Carbon Dioxide 20 mEq/L (23-29) L 09/01/18 04:59 BUN 40 mg/dL (8-23) H 09/01/18 04:59 Creatinine 1.99 mg/dL (0.70-1.30) H 09/01/18 04:59 Est GFR ( Amer) 39 (> 60) L 09/01/18 04:59 Est GFR (Non-Af Amer) 32 (> 60) L 09/01/18 04:59 Calculated Osmolality 303 (280-300) H 09/01/18 04:59 Calcium 8.4 mg/dL (8.6-10.3) L 09/01/18 04:59 Alkaline Phosphatase 188 Units/L (34-104) H 08/31/18 09:49 Serum Total Protein 6.2 g/dL (6.4-8.9) L 08/31/18 09:49 Albumin 2.8 g/dL (3.5-5.7) L 08/31/18 09:49 Albumin/Globulin Ratio 0.8 (1.1-2.2) L 08/31/18 09:49 Urine Clarity Cloudy (Clear) A 08/31/18 10:50 Urine Protein >=1000 mg/dL (Neg-Trace) H 08/31/18 10:50 Urine Glucose (UA) 250 mg/dL (Normal) H 08/31/18 10:50 Urine Blood Small (Negative) H 08/31/18 10:50 Ur Leukocyte Esterase Trace (Negative) H 08/31/18 10:50 Urine Microscopic RBC 3-5 per hpf (0-3) H 08/31/18 10:50 Urine Microscopic WBC TNTC per hpf (0-3) H 08/31/18 10:50 Ur Culture Indicated? YES (NO) A 08/31/18 10:50 General appearance: Present: average body habitus, no acute distress - Head Head exam: Present: atraumatic - Eye Eye exam: Present: normal appearance, PERRL. Absent: scleral icterus - Neck Additional comments: supple - Respiratory Respiratory exam: Absent: accessory muscle use, rales, respiratory distress, wheezes Additional comments: coarse breath sound from upper air ways - Cardiovascular Cardiovascular exam: Present: +S1, +S2, systolic murmur - GI/Abdominal GI/Abdominal exam: Present: normal bowel sounds, soft. Absent: tenderness - Extremities Exam Extremities exam: Present: pedal edema. Absent: tenderness - Neurological Exam Neurological exam: Present: alert, no focal deficits Additional comments: oriented x1, following commands - Skin Additional comments: multiple bruises on arms Palliative Quality Palliative Quality: Screen for Code Status: Yes, Screen for Goals of Care: Yes, Screen for Pain: Yes, If Pain Regimen Started, Initiate Bowel Regimen: NA, Screen for Nausea/Vomitting: NA (patient unable to verbalize) Code Status: 08/31/18 11:55 Resuscitation Status: Active [RES] Routine Comment: Resuscitation Status: [id number] 08/31/18 17:56 CODE [Resuscitation Status: Active] [RES] Routine Comment: Resuscitation Status: DNR-Comfort Care - Labs CBC & Chem 7: 09/01/18 04:59 09/01/18 04:59 Labs: Laboratory Results - last 24 hr 09/01/18 09/01/18 04:59 04:59 WBC 5.4 RBC 2.79 L Hgb 8.0 L D Hct 25.9 L MCV 92.8 MCH 28.7 MCHC 30.9 L RDW 15.2 H Plt Count 219 MPV 9.6 Immature Gran % 0.4 Seg Neutrophils % 78.2 Lymphocytes % 9.3 Monocytes % 6.7 Eosinophils % 4.7 Basophils % 0.7 Neutrophils # 4.2 Lymphocytes # 0.5 L Monocytes # 0.4 Eosinophils # 0.3 Basophils # 0.0 Sodium 142 Potassium 4.8 Chloride 117 H Carbon Dioxide 20 L BUN 40 H Creatinine 1.99 H Est GFR ( Amer) 39 L Est GFR (Non-Af Amer) 32 L BUN/Creatinine Ratio 20 Glucose 83 Calculated Osmolality 303 H Calcium 8.4 L - ABG Interpretation ABG results: PT/INR, D-dimer PT 12.0 Seconds (9.4-12.1) 08/31/18 09:49 Palliative Scale - Palliative Performance Scale How ambulatory is this patient?: Mainly sit / lie What is patient's level of activity and evidence of disease?: Unable to do any work, Extensive disease How much self-care assistance does patient require?: Considerable assistance required How much oral intake does the patient have?: Minimal to sips What is this patient's level of consciousness?: Full or confusion Palliative Performance Score: 40 % Consult Discharge Plan - Plan Referrals: NONE,PCP [Primary Care Provider] -
[2018-09-01] MEDS: *HR* Heparin 5,000 UNIT/ML VIAL SQ SCH (17:48)
--- NOTE | 2018-09-01 20:58 | Electrocardiograph Report ---
[address] [address] Test Date: 2018-08-31 Pat Name: Pal Guzmán Department: [id number] Room: 2A43 Gender: M Chinese Instructor: : [id number] Requested By: Nick Lo Order Number: [id number] Reading MD: Rachel Wilson Measurements Intervals [place] Rate: 95 P: 51 MD: 47 QRS: 32 QRSD: 110 T: -6 QT: 330 QTc: 415 Interpretive Statements Sinus rhythm Short MD interval Baseline artifact Electronically Signed On 09-01-2018 20:57:06 EST by Rachel Wilson
[2018-09-02] MEDS: Ipratropium 1 PUFF INHALER IH SCH ×3 (04:04→15:27)
[2018-09-02] MEDS: *HR* Heparin 5,000 UNIT/ML VIAL SQ SCH (06:08)
[2018-09-02] MEDS ORDERED: Levothyroxine 25 MCG TABLET PO SCH (06:30)
[2018-09-02] MEDS: cefTRIAXone 1,000 MG in Water for inj. (sterile) 20 ML 10 ML IVP SCH (09:50)
--- NOTE | 2018-09-02 09:52 | Palliative Progress Note ---
Date of Encounter: 09/02/18 Time of Encounter: 09:00 - Assessment and plan (1) Goals of care, counseling/discussion Current Visit: Yes Status: Acute Assessment and plan: [facility] [place] [place] of care. Reviewed note from yesterday with Leslie regarding completion of IV Antibiotics treatment then go home [facility] hospice care. Leslie reports patient is not improving and desires to bring patient home. Leslie reports she cannot remember the hospice agency granddaughter chose, but would call and see. Leslie called Rachel with no answer. Primary RN Patricia arrived at bedside and was able to identify hospice agency. Leslie Agreed to [facility]. Informed Leslie would call referral and would notify when patient was accepted or return to discuss further if [facility] refused case; Agreed. DME needs identified: Bed, Table, BSC, Oxygen, [place] belt ([place]), Shower chair. Patient has walker and wheelchair at home. Called [facility]; referral given with request for return call upon acceptance. Patient will need [address] supply [address]s. Dr[address] Michel notified with current discharge plan. Received telephone call back from Shilpa at [facility]. Patient unable to be accepted to their hospice program at this time due to albumin "too good." Shilpa requested Pre-Albumin lab or referral home with home health/hospice and they can care for him in either capacity until patient meets their criteria. Gave information to Leslie. Leslie reports after further discussion with Rachel, second choice is [facility]. Does not want to put patient through a repeat lab draw for a "maybe chance of hospice." Called referral to [facility]. Patient to go home with [facility] today. Will send Prescriptions for Ativan and Oxycodone for comfort. Updated Primary RN and Dr. Michel of new discharge plan. Patient to be transported home via Ambulance. (2) COPD (chronic obstructive pulmonary disease) Current Visit: Yes Status: Chronic Assessment and plan: Patient not showing signs of dyspnea at this time. Continue oxygen therapy. Qualifiers: COPD type: chronic bronchitis Chronic bronchitis type: unspecified Qualified Code(s): J42 - Unspecified chronic bronchitis (3) Dehydration Current Visit: No Status: Acute (4) Acute kidney injury superimposed on CKD Current Visit: Yes Status: Acute (5) Altered mental state Current Visit: Yes Status: Resolved Qualifiers: Altered mental status type: disorientation Qualified Code(s): R41.0 - Disorientation, unspecified (6) Falls Current Visit: Yes Status: Chronic Assessment and plan: Patient having frequent falls at home. Requested Hospital bed with side rales. Qualifiers: Encounter type: initial encounter Qualified Code(s): W19.XXXA - Unspecified fall, initial encounter (7) Excessive oral secretions Current Visit: Yes Status: Acute Assessment and plan: Improved to baseline. (8) Protein-calorie malnutrition, moderate Current Visit: Yes Status: Chronic - Time Spent With Patient Total time spent is greater than 50% in coordination of care (as documented) at patient's floor/unit and/or counseling patient: Greater than 35 minutes (5 minute chart review; 20 minute discussion with daughter regarding discharge planning with hospice care; 5 minute update with Primary RN; [address] Michel with Discharge plan; 10 minute call of referrals (times 2); 5 minutes finalization of discharge plan with family and sending prescriptions to pharmacy.) - Subjective Interval history: Patient lying in bed leaning towards right side. Patient looks at speaker when spoken to; however, makes no attempt at speaking. Attempted to inquire for pain, dyspnea, nausea, vomiting, and anxiety; no response. Patient showing no no nverbal signs of pain at this time. Patient's daughter Leslie (MPOA) present at bedside, whom reports patient is not improving anymore and just wants to take him home. Spoke with Primary RN Patricia after physical assessment, whom reports yesterday patient's daughter and granddaughter (primary and secondary MPOA) had discussion regarding discharge planning. Nurse had to ask them to go to another room. Upon completion of conversation, Granddaughter reported to RN that plan for discharge was home with [facility]. - Constitutional Vitals: Abnormal lab results RBC 2.79 M/mcL (4.19-5.50) L 09/01/18 04:59 Hgb 8.0 g/dL (12.9-16.9) L D 09/01/18 04:59 Hct 25.9 % (37.5-50.1) L 09/01/18 04:59 MCHC 30.9 g/dL (31.6-35.5) L 09/01/18 04:59 RDW 15.2 % (11.5-14.5) H 09/01/18 04:59 Lymphocytes # 0.5 K/mcL (0.6-4.6) L 09/01/18 04:59 Chloride 117 mEq/L (98-107) H 09/01/18 04:59 Carbon Dioxide 20 mEq/L (23-29) L 09/01/18 04:59 BUN 40 mg/dL (8-23) H 09/01/18 04:59 Creatinine 1.99 mg/dL (0.70-1.30) H 09/01/18 04:59 Est GFR ( Amer) 39 (> 60) L 09/01/18 04:59 Est GFR (Non-Af Amer) 32 (> 60) L 09/01/18 04:59 POC Glucose 101 mg/dL (70-99) H 09/01/18 12:00 Calculated Osmolality 303 (280-300) H 09/01/18 04:59 Calcium 8.4 mg/dL (8.6-10.3) L 09/01/18 04:59 Alkaline Phosphatase 188 Units/L (34-104) H 08/31/18 09:49 Serum Total Protein 6.2 g/dL (6.4-8.9) L 08/31/18 09:49 Albumin 2.8 g/dL (3.5-5.7) L 08/31/18 09:49 Albumin/Globulin Ratio 0.8 (1.1-2.2) L 08/31/18 09:49 Urine Clarity Cloudy (Clear) A 08/31/18 10:50 Urine Protein >=1000 mg/dL (Neg-Trace) H 08/31/18 10:50 Urine Glucose (UA) 250 mg/dL (Normal) H 08/31/18 10:50 Urine Blood Small (Negative) H 08/31/18 10:50 Ur Leukocyte Esterase Trace (Negative) H 08/31/18 10:50 Urine Microscopic RBC 3-5 per hpf (0-3) H 08/31/18 10:50 Urine Microscopic WBC TNTC per hpf (0-3) H 08/31/18 10:50 Ur Culture Indicated? YES (NO) A 08/31/18 10:50 General appearance: Present: disheveled, no acute distress - Head Head exam: Present: atraumatic, normal inspection - Eye Eye exam: Present: normal appearance. Absent: periorbital swelling, periorbital tenderness - ENT ENT exam: Present: mucous membranes dry, normal external ear exam - Neck Neck exam: Present: normal inspection. Absent: tenderness - Respiratory Respiratory exam: Present: decreased breath sounds, wheezes. Absent: accessory muscle use, respiratory distress - Cardiovascular Cardiovascular exam: Present: irregular rhythm, +S1, +S2 - GI/Abdominal GI/Abdominal exam: Present: distended, hyperactive bowel sounds, soft. Absent: guarding, tenderness - Rectal Rectal exam: Present: deferred - Extremities Exam Extremities exam: Present: normal inspection, tenderness. Absent: calf tenderness, pedal edema - Expanded Upper Extremity Exam General: Present: abrasion Elbow exam: Present: abrasion Forearm wrist exam: Present: abrasion Hand wrist exam: Present: abrasion - Back Exam Back exam: Present: normal inspection - Neurological Exam Neurological exam: Present: alert, altered. Absent: oriented X3 - Psychiatric Psychiatric exam: Present: flat affect - Skin Skin exam: Present: dry, pallor, warm. Absent: intact Palliative Quality Palliative Quality: Screen for Code Status: Yes, Screen for Goals of Care: Yes, Screen for Pain: Yes, If Pain Regimen Started, Initiate Bowel Regimen: NA, Screen for Nausea/Vomitting: NA (patient unable to verbalize) Code Status: 08/31/18 11:55 Resuscitation Status: Active [RES] Routine Comment: Resuscitation Status: [id number] 08/31/18 17:56 CODE [Resuscitation Status: Active] [RES] Routine Comment: Resuscitation Status: DNR-Comfort Care - Labs CBC & Chem 7: 09/01/18 04:59 09/01/18 04:59 Labs: Laboratory Results - last 24 hr 09/01/18 12:00 POC Glucose 101 H - ABG Interpretation ABG results: PT/INR, D-dimer PT 12.0 Seconds (9.4-12.1) 08/31/18 09:49 Palliative Scale - Palliative Performance Scale How ambulatory is this patient?: Mainly sit / lie What is patient's level of activity and evidence of disease?: Unable to do any work, Extensive disease How much self-care assistance does patient require?: Considerable assistance required How much oral intake does the patient have?: Minimal to sips What is this patient's level of consciousness?: Full or confusion Palliative Performance Score: 40 % Consult Discharge Plan - Plan Referrals: NONE,PCP [Primary Care Provider] -
[2018-09-02] MEDS: Budesonide/Formoterol 160/4.5 1 PUFF INH IH SCH (09:57)
[2018-09-02 11:55] VITALS: BP 156/89
--- NOTE | 2018-09-02 13:32 | Discharge Summary ---
- NOTES TO OUTPATIENT PROVIDER Notes to Outpatient Provider: None Orders not resulted at time of discharge: Pending orders 08/31/18 09:52 Culture,Blood [BC] Stat 09/01/18 12:22 Occult Blood,Stool [BF] Stat Date of Encounter: 09/02/18 Time of Encounter: 11:00 - Discharge Diagnosis (1) COPD (chronic obstructive pulmonary disease) Priority: Primary Status: Chronic Qualifiers: COPD type: chronic bronchitis Chronic bronchitis type: unspecified Qualified Code(s): J42 - Unspecified chronic bronchitis (2) Coronary artery disease Priority: Secondary Status: Chronic Qualifiers: Coronary Disease-Associated Artery/Lesion type: unspecified vessel or lesion type [place] vs. transplanted heart: unspecified whether [place] or transplanted heart Associated angina: angina presence unspecified Qualified Code(s): I25.10 - Atherosclerotic heart disease of [place] coronary artery without angina pectoris (3) Chronic kidney disease Priority: Secondary Status: Chronic Qualifiers: Chronic kidney disease stage: stage 3 (moderate) Qualified Code(s): N18.3 - Chronic kidney disease, stage 3 (moderate) (4) Hypothyroidism Priority: Secondary Status: Chronic Qualifiers: Qualified Code(s): E03.9 - Hypothyroidism, unspecified (5) UTI (urinary tract infection) Priority: Primary Status: Acute Qualifiers: Urinary tract infection type: acute cystitis Hematuria presence: with hematuria Qualified Code(s): N30.01 - Acute cystitis with hematuria (6) Protein-calorie malnutrition, moderate Priority: Secondary Status: Chronic (7) Altered mental state Priority: Primary Status: Resolved Qualifiers: Altered mental status type: disorientation Qualified Code(s): R41.0 - Disorientation, unspecified (8) Falls Priority: Secondary Status: Chronic Qualifiers: Encounter type: initial encounter Qualified Code(s): W19.XXXA - Unspecified fall, initial encounter (9) Anemia Priority: Secondary Status: Chronic Qualifiers: Anemia type: unspecified type Qualified Code(s): D64.9 - Anemia, unspecified Hospital course: Patient is an 83-year-old male with past medical history significant for COPD, hypertension, CAD, HLD, CKD and hypothyroidism who presented due to altered status. He is able to walk on and off sometimes with a walker however has been falling a lot leading to a lot of injuries and bruises. In addition, patient had not been eating leading up to admission. In the ER, x-ray of spine, wrist and shoulder did not show any acute fractures. CT had was unremarkable. Lab data significant for possible UTI. patient was admitted for further observation. During patients hospital stay decision was made by family for palliative care with recommendations for hospice care. Treatment was continued for urinary tract infection during inpatient stay and patient will be discharged with home hospice to complete a course of oral antibiotics for UTI. - Time Spent with Patient Total time spent providing and/or coordinating discharge services: Less than 30 minutes - Discharge Medications Prescriptions: Amoxicillin [Amoxil] 500 mg PO TID 5 Days #15 capsule LORazepam Oral Conc [Ativan Oral Conc] 0.5 mg PO Q4H PRN 4 Days #15 mls PRN Reason: Anxiety OXYCODONE Oral CONC [Oxycodone Oral Conc] 5 mg SL Q4H PRN 4 Days #15 ml PRN Reason: pain/dyspnea Home Medications: Ipratropium/Albuterol Neb [Duoneb] 3 ml IH Q6HR PRN #30 vial.neb 09/26/15 [Rx] Budesonide/Formoterol 160/4.5 [Symbicort 160/4.5] 2 puff IH BIDR 08/17/17 [History] Ipratropium [ATROVENT Inhaler] 2 puff IH QID 08/17/17 [History] Omeprazole [PriLOSEC] 20 mg PO 0730,1630 08/17/17 [History] Simvastatin [Zocor] 40 mg PO HS 08/17/17 [History] Tamsulosin [Flomax] 0.4 mg PO DAILY 08/17/17 [History] Acetylcysteine [J-Bbnugg-c-Cysteine] 600 mg PO BID 06/29/18 [History] Docusate Sodium [Dok] 100 mg PO BID PRN 06/29/18 [History] Levothyroxine [Synthroid] 25 mcg PO DAILY@0630 06/29/18 [History] Metoprolol [Lopressor] 12.5 mg PO BID 06/29/18 [History] Nitroglycerin [Nitrostat] 0.4 mg SL Q5M PRN 06/29/18 [History] Theophylline Anhydrous [Jayjay-24] 100 mg PO DAILY 06/29/18 [History] Sodium Bicarbonate 325 mg PO TID 30 Days #90 tablet 08/08/18 [Rx] Ferrous Sulfate 325 mg PO DAILY@1200 09/01/18 [History] Amoxicillin [Amoxil] 500 mg PO TID 5 Days #15 capsule 09/02/18 [Rx] LORazepam Oral Conc [Ativan Oral Conc] 0.5 mg PO Q4H PRN 4 Days #15 mls 09/02/18 [Rx] OXYCODONE Oral CONC [Oxycodone Oral Conc] 5 mg SL Q4H PRN 4 Days #15 ml 09/02/18 [Rx] Allergies/Adverse Reactions: Allergy/AdvReac Type Severity Reaction Status Date / Time latex Allergy Hives Verified 08/17/17 17:28 vancomycin Allergy See Verified 08/17/17 17:28 Comments lansoprazole AdvReac See Verified 08/17/17 17:28 Comments linezolid AdvReac See Verified 08/17/17 17:28 Comments Date of admission: 08/31/18 14:32 Primary care physician: PCP NONE Consults: 08/31/18 11:57 Consult to Machine Designer [CONS] Routine Reason for SW Consult: placement 08/31/18 12:14 Consult to Palliative Care [CONS] Stat Comment: Consulting Provider: Palliative Care Rylie Reason for Consult: Disscuss goals of care Call Completed: Yes 08/31/18 12:31 Consult to Speech Therapy [CONS] Stat Comment: Evaluate, develop and implement POC Reason for Consult: swallow evaluation Call Completed: No - Constitutional Vitals: Temp Pulse Resp BP Pulse Ox 98.3 F 85 16 156/89 98 09/02/18 11:51 09/02/18 11:51 09/02/18 11:51 09/02/18 11:51 09/02/18 11:51 Exam: Gen.: Nonacute distress, alert and oriented 3 Skin: Normal color - Patient Status Disposition: Hospice - Home Condition: Undetermined - Discharge Instructions Instructions: Chronic Obstructive Pulmonary Disease (DC) Follow Up With: NONE,PCP [Primary Care Provider] - - VTE Documentation of Mechanical Device: Intermittent pneumatic compression device
--- NOTE | 2018-09-02 13:33 | Physician Discharge Referral ---
Home Health/Hosp Referral Info Transfer to: Hospice - Diagnosis (1) COPD (chronic obstructive pulmonary disease) Status: Chronic (2) Coronary artery disease Status: Chronic (3) Chronic kidney disease Status: Chronic (4) Hypothyroidism Status: Chronic (5) UTI (urinary tract infection) Status: Acute (6) Protein-calorie malnutrition, moderate Status: Chronic (7) Altered mental state Status: Resolved (8) Falls Status: Chronic (9) Anemia Status: Chronic - Respiratory Orders Smoking Cessation: Smoking cessation has been advised. For more information, call the [place] Tobacco Quit Line at 2-763-IVIS-NOW. - Transfer Medications Prescriptions: LORazepam Oral Conc [Ativan Oral Conc] 0.5 mg PO Q4H PRN 4 Days #15 mls PRN Reason: Anxiety OXYCODONE Oral CONC [Oxycodone Oral Conc] 5 mg SL Q4H PRN 4 Days #15 ml PRN Reason: pain/dyspnea Home Medications: Ipratropium/Albuterol Neb [Duoneb] 3 ml IH Q6HR PRN #30 vial.neb 09/26/15 [Rx] Budesonide/Formoterol 160/4.5 [Symbicort 160/4.5] 2 puff IH BIDR 08/17/17 [History] Ipratropium [ATROVENT Inhaler] 2 puff IH QID 08/17/17 [History] Omeprazole [PriLOSEC] 20 mg PO 0730,1630 08/17/17 [History] Simvastatin [Zocor] 40 mg PO HS 08/17/17 [History] Tamsulosin [Flomax] 0.4 mg PO DAILY 08/17/17 [History] Acetylcysteine [Z-Jzmryx-y-Cysteine] 600 mg PO BID 06/29/18 [History] Docusate Sodium [Dok] 100 mg PO BID PRN 06/29/18 [History] Levothyroxine [Synthroid] 25 mcg PO DAILY@0630 06/29/18 [History] Metoprolol [Lopressor] 12.5 mg PO BID 06/29/18 [History] Nitroglycerin [Nitrostat] 0.4 mg SL Q5M PRN 06/29/18 [History] Theophylline Anhydrous [Jayjay-24] 100 mg PO DAILY 06/29/18 [History] Sodium Bicarbonate 325 mg PO TID 30 Days #90 tablet 08/08/18 [Rx] Ferrous Sulfate 325 mg PO DAILY@1200 09/01/18 [History] LORazepam Oral Conc [Ativan Oral Conc] 0.5 mg PO Q4H PRN 4 Days #15 mls 09/02/18 [Rx] OXYCODONE Oral CONC [Oxycodone Oral Conc] 5 mg SL Q4H PRN 4 Days #15 ml 09/02/18 [Rx] Allergies/Adverse Reactions: Allergy/AdvReac Type Severity Reaction Status Date / Time latex Allergy Hives Verified 08/17/17 17:28 vancomycin Allergy See Verified 08/17/17 17:28 Comments lansoprazole AdvReac See Verified 08/17/17 17:28 Comments linezolid AdvReac See Verified 08/17/17 17:28 Comments Certification: Further, I certify that my clinical findings support that this patient is homebound (i.e. absences from home require considerable and taxing effort and are for medical reasons or worship services or infrequently or short duration when for other reasons) because: Homebound Reason: Patient requires assistance of a person or device to safely leave home Attestation: My signature below is to certify that this patient is under my care and that I, or nurse practitioner, or a physician's assistant professor of biology working with me, has a [id number] encounter with this patient.
[2018-09-02] MEDS ORDERED: Amoxicillin 500 MG CAPSULE PO SCH (15:00)
== END 2018-09-02 15:28 | disposition hospice, home (50) | DRG 178 ==
LOC: EMEROOARM 09:18 → 2ANU 09:18 → SUATTDRO 14:32
PROVIDERS: ADMIT Internal Medicine; ATTEND Hospitalist